=== PATIENT | male | born 1970 | race Caucasian/White ===

== ENCOUNTER 2017-03-14 17:58 | Emergency (ER) | payer OTHER ==
[~2017-03-14] VITALS: Ht 180.3 cm; Wt 81.7 kg
[2017-03-14] MEDS ORDERED: KEFLEX500 MG PO (19:20)
[2017-03-14] MEDS ORDERED: MOBIC15 MG PO (19:21)
[2017-03-14 19:22] VITALS: BP 130/76
== END 2017-03-14 19:39 | disposition home or self-care (01) ==
LOC: ER 17:58
DX: L03.114 Cellulitis of left upper limb (principal)